=== PATIENT | female | born 1965 | race African-American/Black ===

== ENCOUNTER 2024-09-06 17:55 | Inpatient (IN) | payer MEDICARE ==
[2024-09-06] MEDS ORDERED: Acetaminophen 325 MG TAB PO PRN (18:14)
[2024-09-06] MEDS ORDERED: Dextrose 50% Abboject 50 ML SYRINGE SLOW IVP PRN (18:16)
[2024-09-06] MEDS ORDERED: Glucagon 1 MG/ML KIT IM PRN (18:16)
[2024-09-06] MEDS ORDERED: Insulin Lispro 100 UNIT/ML 10 ML VIAL SC PRN (18:22)
[2024-09-06 18:24] VITALS: BMI 39.9
[2024-09-06] MEDS: Atorvastatin Calcium 40 MG TAB PO SCH (21:04)
[2024-09-06] MEDS: Lantus 1000 UNITS/10 ML VIAL SC SCH (21:04)
[2024-09-06] MEDS: Famotidine 20 MG TAB PO SCH (21:04)
[2024-09-06] MEDS: Nicotine 14 MG PATCH TD SCH (21:04)
[2024-09-07 07:34] LABS: #Basophils 0.1 thou/uL (0.0-0.2); #Eosinophils 0.2 thou/uL (0.0-0.7); #Lymphocytes 1.7 thou/uL (1.20-3.40); #Monocytes 0.8 thou/uL (0.11-0.59); #Neutrophils 4.2 thou/uL (1.40-6.50); %Basophils 0.8 % (0.0-1.0); %Eosinophils 2.9 % (0.0-10.0); %Lymphocytes 24.3 % (21.0-51.0); %Monocytes 11.8 % (0.0-10.0); %Neutrophils 60.1 % (42.0-75.0); Hemoglobin 11.9 g/dL (12.0-16.0); Mean Corpuscular HGB CONC 30.6 g/dL (32.0-36.0); Mean Corpuscular Hemoglobin 26.9 pg (27.0-31.0); Mean Corpuscular Volume 88.1 fl (78.0-98.0); Mean Platelet Volume 8.5 fL (7.4-10.4); Platelet Count 326 10x3/uL (130-400); RBC Distribution Width 11.9 % (11.5-14.5); Red Blood Cell (RBC) Count 4.43 mill/uL (4.20-5.40); White Blood Cell (WBC) Count 7.1 10x3/uL (4.8-10.8)
[2024-09-07 07:45] LABS: ALT (SGPT) 33 U/L (Less than 34); AST (SGOT) 32 U/L (11-34); Albumin 2.6 g/dL (3.1-4.5); Alkaline Phosphatase 78 U/L (40-110); Anion Gap 9 mmol/L (10-20); BUN (Urea Nitrogen) 41 mg/dL (9.8-20.1); Bilirubin, Total 0.2 mg/dL (0.3-1.2); Calc. Creatinine Clearance 52 mL/min (70-130); Calcium 9.6 mg/dL (7.8-10.44); Carbon Dioxide 23 mmol/L (23-31); Chloride 111 mmol/L (98-107); Estimated GFR 31; Globulin 4.9 g/dL (2.4-3.5); Glucose 116 mg/dL (80-115); Potassium 4.1 mmol/L (3.5-5.1); Protein, Total 7.5 g/dL (5.8-8.1); Sodium 139 mmol/L (136-145)
[2024-09-07] MEDS ORDERED: Clopidogrel Bisulfate 75 MG TAB PO SCH (09:00)
[2024-09-07] MEDS: Metoprolol Succinate XL 50 MG ER.TAB PO SCH (09:13)
[2024-09-07] MEDS: Aspirin Chewable 81 MG TAB PO SCH (09:13)
[2024-09-07] MEDS: Lisinopril 10 MG TAB PO SCH (09:13)
[2024-09-07] MEDS: Polyethylene Glycol 3350 17 GM Packet PO SCH (09:13)
[2024-09-07] MEDS: NIFEdipine XL 60 MG ER.TAB PO SCH (09:13)
[2024-09-07] MEDS: TICAGRELOR 90 MG TABLET PO SCH ×2 (12:52→20:54)
[2024-09-08] MEDS: Famotidine 20 MG TAB PO SCH (07:52)
[2024-09-08] MEDS ORDERED: Bisacodyl 10 MG SUPP PR PRN (08:34)
[2024-09-08] MEDS: Senokot S 8.6-50 MG TAB PO SCH (09:46)
[2024-09-08] MEDS: Insulin Lispro 100 UNIT/ML 10 ML VIAL SC PRN (10:51)
[2024-09-11 06:02] LABS: Anion Gap 13 mmol/L (10-20); BUN (Urea Nitrogen) 31 mg/dL (9.8-20.1); Calc. Creatinine Clearance 57 mL/min (70-130); Carbon Dioxide 20 mmol/L (23-31); Chloride 110 mmol/L (98-107); Estimated GFR 34; Glucose 107 mg/dL (80-115); Potassium 4.1 mmol/L (3.5-5.1); Sodium 139 mmol/L (136-145)
[2024-09-12] MEDS: NIFEdipine XL 90 MG ER.TAB PO SCH (11:30)
[2024-09-13] MEDS: Lantus 1000 UNITS/10 ML VIAL SC SCH (20:54)
[2024-09-14 05:57] LABS: #Basophils 0.1 thou/uL (0.0-0.2); #Eosinophils 0.4 thou/uL (0.0-0.7); #Monocytes 0.8 thou/uL (0.11-0.59); %Basophils 1.5 % (0.0-1.0); %Eosinophils 4.8 % (0.0-10.0); %Lymphocytes 23.8 % (21.0-51.0); %Monocytes 9.8 % (0.0-10.0); %Neutrophils 60.1 % (42.0-75.0); Hematocrit 36.2 % (36.0-47.0); Hemoglobin 11.3 g/dL (12.0-16.0); Mean Corpuscular HGB CONC 31.3 g/dL (32.0-36.0); Mean Corpuscular Hemoglobin 27.2 pg (27.0-31.0); Mean Corpuscular Volume 86.9 fl (78.0-98.0); Platelet Count 386 10x3/uL (130-400); RBC Distribution Width 11.9 % (11.5-14.5); Red Blood Cell (RBC) Count 4.17 mill/uL (4.20-5.40); White Blood Cell (WBC) Count 8.2 10x3/uL (4.8-10.8)
[2024-09-14 06:11] LABS: ALT (SGPT) 30 U/L (Less than 34); AST (SGOT) 22 U/L (11-34); Alkaline Phosphatase 75 U/L (40-110); Anion Gap 13 mmol/L (10-20); BUN (Urea Nitrogen) 33 mg/dL (9.8-20.1); Bilirubin, Total 0.3 mg/dL (0.3-1.2); Calc. Creatinine Clearance 54 mL/min (70-130); Calcium 9.8 mg/dL (7.8-10.44); Carbon Dioxide 20 mmol/L (23-31); Chloride 109 mmol/L (98-107); Estimated GFR 31; Globulin 4.5 g/dL (2.4-3.5); Glucose 112 mg/dL (80-115); Potassium 4.3 mmol/L (3.5-5.1); Protein, Total 7.5 g/dL (5.8-8.1); Sodium 138 mmol/L (136-145)
[2024-09-14 14:01] LABS: Hemoglobin A1c 7.1 % (4.0-6.0)
[2024-09-15 07:09] VITALS: BMI 40.8
[2024-09-15 07:21] VITALS: BP 120/78; TEMP 97.8
== END 2024-09-15 17:49 | disposition home health service (06) | DRG 945 ==
LOC: NAV ACUTE 18:10
PROVIDERS: ADMIT Student in an Organized Health Care Education/Training Program; ATTEND Student in an Organized Health Care Education/Training Program
PROC: F07Z9ZZ Gait Training/Functional Ambulation Treatment (ICD-10-PCS; principal; 2024-09-07)
DX: R53.81 Other malaise (principal); I13.0 Hypertensive heart and chronic kidney disease with heart failure and stage 1 through stage 4 chronic kidney disease, or unspecified chronic kidney disease; N18.32 Chronic kidney disease, stage 3b; E78.5 Hyperlipidemia, unspecified; E11.22 Type 2 diabetes mellitus with diabetic chronic kidney disease; K59.00 Constipation, unspecified; F17.210 Nicotine dependence, cigarettes, uncomplicated; I69.322 Dysarthria following cerebral infarction
CPT/HCPCS: 36416; 80048; 80053; 83036; 85025; 36415-59; J1815